=== PATIENT | male | born 1970 | race Caucasian/White ===

== ENCOUNTER → 2017-09-09 | Outpatient (CLI) | payer OTHER ==
[~2017-09-09] MED LIST: LIORESAL 10 MG10 MG PO; LISINOPRIL20 MG PO; MOBIC15 MG PO; NEURONTIN 300300 M1 PO; TRAMADOL 50 MG50 MG PO
--- NOTE | 2017-09-10 08:10 | PAINCON ---
[address] [address] PAIN MANAGEMENT CONSULTATION Name: CATHIE QUINTERO [facility] [id number] Admission: 09/09/17 Attend Phys: [place] Caicedo Discharge: Date of : 66 Report #: [id number] THIS REPORT FOR: //name// CC: Kim Mercer DATE OF SERVICE: 09/09/2017 The patient is a pleasant 46-year-old gentleman, typically treated for lumbar radiculopathy status post decompressive laminectomy. He had had L5-S1 epidural injection back in June, we continued the patient on tramadol 50 mg up to 4 times a day, gabapentin 300 mg 1 in the morning and 2 at night, and meloxicam 15 mg daily. The patient notes some efficacy with interventional therapy and medications. Actually, he returns today noting another complaint. He states he has had a chronic right frozen shoulder, but pain has been getting worse for the past couple of months without antecedent trauma and overuse. Actually pain in both shoulders, but the right is much more problematic. PHYSICAL EXAMINATION: Shows a pleasant 46-year-old gentleman. Vital signs are stable. Cervical range of motion is full, significant limited right arm abduction to about 45 degrees, both active and passively. Significant pain with resistance to tricep and deltoid strength on the left. Some passive rotation pain on the left, again much greater on the right. Heart is regular and rhythmical. Lungs are clear. Rises from chair using armrest. Gait is tandem. Lower extremity strength is generally preserved at this time. His prior lumbar radicular symptoms have resolved, though he does have some axial back pain. ASSESSMENT: 1. Symptomatic lumbar radiculopathy status post decompressive laminectomy, axial back pain, requiring complex medication management. 2. Acute exacerbation of right shoulder pain, chronic right shoulder "frozen shoulder" and degenerative joint disease. Component of left shoulder degenerative joint disease as well. RECOMMENDATIONS: 1. Continue tramadol 50 mg up to 4 a day, gabapentin 300 mg 1 in the morning and 2 at night, and meloxicam 15 mg 1 a day. 2. Referral to orthopedics for further evaluation, may require manipulation under anesthesia for adhesive capsulitis. 3. Right shoulder injection under fluoroscopy today. 4. Range of motion and physical therapy exercises recommended. PROCEDURE: Right shoulder injection under fluoroscopy, and fluoroscopy time is under 10 seconds. PROCEDURE NOTE: After written informed consent was obtained, 3-[place] [address] PAIN MANAGEMENT CONSULTATION Name: CATHIE QUINTERO [place] Room: [facility]#: [id number] Admission: 09/09/17 Attend Phys: [place] Caicedo Discharge: Date of : 66 Report #: [id number] accomplished in the right shoulder. Skin wheal with Xylocaine was raised using a 22-gauge stylet needle, 40 mg triamcinolone plus 2 mL of 0.5% preservative-free bupivacaine. Needle was advanced in the medial aspect of the humerus superior to the glenoid process. AP and lateral projections showed good needle placement. The injection flowed freely, needle was removed, the area was cleansed, Band-Aids applied. The patient was told to use ice to the area today. Biggest risk is infection, told to watch for fever, chills, systemic signs of infection and report the ER. We do not expect any of these. Follow up in 4 weeks to evaluate efficacy. <ELECTRONICALLY SIGNED> By: Rui Mercer DO 09/10/17 0810 [id number] [id number] Mercer DO /nt
== END | disposition home or self-care (01) ==
LOC: M.PC 07-15 08:40
DX: M19.011 Primary osteoarthritis, right shoulder (principal); M19.012 Primary osteoarthritis, left shoulder; G89.29 Other chronic pain; Z98.890 Other specified postprocedural states; Z79.891 Long term (current) use of opiate analgesic; Z79.899 Other long term (current) drug therapy

== ENCOUNTER → 2017-12-02 | Outpatient (CLI) | payer OTHER ==
--- NOTE | 2017-12-03 09:41 | PAINCON ---
[address] [address] PAIN MANAGEMENT CONSULTATION Name: CATHIE QUINTERO [facility] [id number] Admission: 12/02/17 Attend Phys: [place] Caicedo Discharge: Date of : 66 Report #: [id number] THIS REPORT FOR: //name// CC: Kim Mercer DATE OF SERVICE: 12/02/2017 The patient is a pleasant 47-year-old gentleman, prior seen in the Pain Clinic back in August with ongoing right shoulder issues. At that time, we did a right shoulder injection under fluoroscopy and referred him to Orthopedics. He had excellent relief with this injection, but pain has gradually began to recur. He saw the orthopedic surgeon who said he had significant DJD and suggested he may require total shoulder arthroplasty. Otherwise, he presents with ongoing axial back pain radiating down the left leg. He notes a burning dysesthesia with standing for any period of time. He is status post lumbar decompressive laminectomy. PHYSICAL EXAMINATION: He rises from chair using armrest. Does have an antalgic gait. Left leg is objectively diminished strength about 3/5 to all muscle groups tested. Right leg is little stronger at 4/5. Grossly positive straight leg raise at 30 degrees on the left. BMI is 26.1 kilograms per meter squared. Blood pressure 136/80, pulse 75, respirations 16. Subjective pain score is 5-6 on a VAS. Rises from chair as noted with moderately antalgic gait. DIAGNOSTIC STUDIES: There are no recent diagnostic studies available for evaluation at this time. ASSESSMENT: Symptomatic lumbar radiculopathy, status post decompressive laminectomy. RECOMMENDATIONS: 1. Epidural injection under fluoroscopy, ____. 2. Symptomatic DJD, right shoulder, we will seek authorization for repeat steroid injection at next visit. PROCEDURE: Lumbar epidural injection under fluoroscopy. PROCEDURE NOTE: After both written and informed consent to include risk of spinal cord damage, increased pain, weakness and dural puncture, the patient was taken to the fluoroscopy suite, placed in the prone position. After sterile prep and drape, a skin wheal with lidocaine was raised. A 22-gauge epidural Tuohy needle was inserted in the midline at L4-L5 with good loss to resistance. Negative aspiration for cerebrospinal fluid or blood was noted. Then 1 [place] [address] PAIN MANAGEMENT CONSULTATION Name: CATHIE QUINTERO [facility] [id number] Admission: 12/02/17 Attend Phys: [place] Caicedo Discharge: Date of : 66 Report #: [id number] Omnipaque under biplanar fluoroscopy showed good spread within the epidural space. This was followed with 80 mg of triamcinolone plus 1 mL of 1.5% preservative-free Xylocaine, 0.5 mL Xylocaine was then injected to flush the needle; it was removed. The patient was monitored for an appropriate period of time and discharged in good and stable condition. <ELECTRONICALLY SIGNED> By: Rui Mercer DO 12/03/17 0941 [id number] Mercer DO /nt
== END | disposition home or self-care (01) ==
LOC: M.PC 01:47
DX: M54.16 Radiculopathy, lumbar region (principal); G89.29 Other chronic pain; M19.011 Primary osteoarthritis, right shoulder; Z79.899 Other long term (current) drug therapy; Z98.890 Other specified postprocedural states

== ENCOUNTER → 2017-12-16 | Outpatient (CLI) | payer OTHER ==
--- NOTE | 2017-12-18 09:51 | PAINCON ---
[facility] [address] [place] [address] PAIN MANAGEMENT CONSULTATION Name: CATHIE QUINTERO [id number] Admission: 12/16/17 Attend Phys: [place] Caicedo Discharge: Date of : 66 Report #: [id number] THIS REPORT FOR: //name// CC: Kim Mercer DATE OF SERVICE: 12/16/2017 The patient is a very pleasant 47-year-old gentleman, last seen in the pain clinic 12/02/2017, diagnosed with symptomatic lumbar radiculopathy, status post decompressive laminectomy with osteoarthritis of right shoulder. We did a single epidural injection at L4-L5 at last visit. We sought authorization for right shoulder injection under fluoroscopy. He returns to pain clinic today noting that the lumbar epidural injection has afforded significant relief. States low back is "feeling better." It is not interfering with function. He still has pain that he rates at 4/10 on a VAS regarding the right shoulder. He did see Dr. Kothari at [facility]. They recommended total shoulder arthroplasty in the right side. He would prefer to proceed with shoulder injection under fluoroscopy today. Follow up simply as needed. Procedure is right shoulder degenerative joint disease. RECOMMENDATION: 1. Right shoulder injection under fluoroscopy. 2. We will renew tramadol 50 mg 1 tablet 3-4 times a day, limit #100 tablets with 1 refill. PROCEDURE NOTE PROCEDURE: Right shoulder injection under fluoroscopy. PROCEDURE: After written informed consent was obtained, the patient was taken to the fluoroscopy suite and placed in prone position. After sterile prep and drape, skin was raised. A 22-gauge stylet needle was placed to enter the right shoulder joint between the glenoid and humeral head. Negative aspiration was accomplished, 1 mL of Omnipaque was injected, which showed spread within the joint, was followed with 40 mg triamcinolone plus 2 mL of 0.5% preservative-free bupivacaine. Needle was removed. The area was cleansed, band-aid was applied. The patient was told to use ice to the area today. Observe for signs of infection. Fluoroscopy time was 10 seconds. <ELECTRONICALLY SIGNED> By: Rui Mercer DO 12/18/17 0951 1541 [id number] Mercer DO /nt
== END | disposition home or self-care (01) ==
LOC: M.PC 07:58
DX: M19.011 Primary osteoarthritis, right shoulder (principal); Z98.890 Other specified postprocedural states; Z79.899 Other long term (current) drug therapy

== ENCOUNTER → 2018-05-17 | Outpatient (CLI) | payer OTHER | LOC: M.CT 08:06 | DX: M19.011 Primary osteoarthritis, right shoulder (principal); M25.711 Osteophyte, right shoulder ==